=== PATIENT | male | born 1985 | race Caucasian/White ===

== ENCOUNTER 2023-01-30 00:32 | Inpatient (IN) | payer OTHER ==
[2023-01-30 00:59] VITALS: BMI 19.3
[2023-01-30] MEDS ORDERED: LOPERAMIDE HCL 2 MG CAPSULE PO PRN (01:38)
[2023-01-30] MEDS ORDERED: NALOXONE HCL 0.4 MG/ML VIAL IM PRN (01:38)
[2023-01-30] MEDS ORDERED: NALOXONE HCL (KLOXXADO) 8 MG SPRAY NS PRN (01:38)
[2023-01-30] MEDS ORDERED: BENZONATATE 200 MG CAPSULE PO PRN (01:38)
[2023-01-30] MEDS ORDERED: ACETAMINOPHEN 325 MG TABLET (FP) PO PRN (01:38)
[2023-01-30] MEDS ORDERED: BENZOCAINE/MENTHOL (CHLORASEPTIC ) LOZENGE MM PRN (01:38)
[2023-01-30] MEDS ORDERED: POLYETHYLENE GLYCOL (HEALTHYLAX) 3350 17 GM PACKET PO PRN (01:38)
[2023-01-30] MEDS ORDERED: METHOCARBAMOL 500 MG TABLET PO PRN (01:38)
[2023-01-30] MEDS ORDERED: guaiFENesin 600 MG TABLET.ER (FP) PO PRN (01:38)
[2023-01-30] MEDS ORDERED: NICOTINE POLACRILEX 4 MG GUM BUC PRN (01:38)
[2023-01-30] MEDS ORDERED: ONDANSETRON *ODT* 4 MG TABLET SL PRN (01:38)
[2023-01-30] MEDS ORDERED: MAG HYDROX/AL HYDROX/SIMETH 30 ML UNIT-DOSE CUP PO PRN (01:38)
[2023-01-30] MEDS ORDERED: MAGNESIUM HYDROX 2400MG/30ML ORAL SUSPENSION 30 ML CUP PO PRN (01:38)
[2023-01-30] MEDS ORDERED: DICYCLOMINE HCL 10 MG CAPSULE PO PRN (01:38)
[2023-01-30] MEDS ORDERED: BISMUTH SUBSALICYLATE 524 MG/30 ML PO PRN (01:38)
[2023-01-30] MEDS ORDERED: IBUPROFEN 400 MG TABLET (FP) PO PRN (01:38)
[2023-01-30] MEDS: NICOTINE 21 MG/24 HOURS TOPICAL PATCH TD SCH (09:35)
[2023-01-30] MEDS: PRENATAL VITAMINS W/ FOLIC ACID TABLET (FP) PO SCH (09:35)
[2023-01-30] MEDS ORDERED: metFORMIN HCL 500 MG TABLET (FP) PO SCH ×2 (10:00→21:11)
[2023-01-30] MEDS ORDERED: chlordiazePOXIDE HCL 25 MG CAPSULE PO PRN (11:06)
[2023-01-30] MEDS: chlordiazePOXIDE HCL 25 MG CAPSULE PO SCH ×3 (11:26→22:24)
[2023-01-30] MEDS ORDERED: HALOPERIDOL 5 MG TABLET PO PRN (13:08)
[2023-01-30] MEDS ORDERED: MELATONIN 5 MG TABLETS PO SCH (22:00)
[2023-01-30] MEDS: THIAMINE HCL 100 MG TABLET (FP) PO SCH (22:23)
[2023-01-30] MEDS: diphenhydrAMINE HCL 25 MG CAPSULE (FP) PO SCH (22:23)
[2023-01-30] MEDS: HALOPERIDOL 5 MG TABLET PO SCH (22:23)
[2023-01-31] MEDS: chlordiazePOXIDE HCL 25 MG CAPSULE PO SCH ×5 (05:50→22:55)
[2023-01-31] MEDS: metFORMIN HCL 500 MG TABLET (FP) PO SCH ×2 (07:26→17:50)
[2023-01-31] MEDS: NICOTINE 21 MG/24 HOURS TOPICAL PATCH TD SCH (10:23)
[2023-01-31] MEDS: PRENATAL VITAMINS W/ FOLIC ACID TABLET (FP) PO SCH (10:23)
[2023-01-31] MEDS: THIAMINE HCL 100 MG TABLET (FP) PO SCH (22:55)
[2023-01-31] MEDS: diphenhydrAMINE HCL 25 MG CAPSULE (FP) PO SCH (22:55)
[2023-01-31] MEDS: HALOPERIDOL 5 MG TABLET PO SCH (22:55)
[2023-02-01] MEDS: chlordiazePOXIDE HCL 25 MG CAPSULE PO SCH ×4 (05:49→22:16)
[2023-02-01] MEDS: metFORMIN HCL 500 MG TABLET (FP) PO SCH ×2 (06:43→17:28)
[2023-02-01] MEDS: IBUPROFEN 600 MG TABLET (FP) PO PRN (08:59)
[2023-02-01] MEDS: PRENATAL VITAMINS W/ FOLIC ACID TABLET (FP) PO SCH (10:13)
[2023-02-01] MEDS: NICOTINE 21 MG/24 HOURS TOPICAL PATCH TD SCH (10:13)
[2023-02-01] MEDS: HALOPERIDOL 5 MG TABLET PO SCH (22:16)
[2023-02-01] MEDS: THIAMINE HCL 100 MG TABLET (FP) PO SCH (22:16)
[2023-02-01] MEDS: diphenhydrAMINE HCL 25 MG CAPSULE (FP) PO SCH (22:20)
[2023-02-02] MEDS ORDERED: chlordiazePOXIDE HCL 10 MG CAPSULE PO PRN
[2023-02-02] MEDS: chlordiazePOXIDE HCL 10 MG CAPSULE PO SCH ×4 (05:25→22:59)
[2023-02-02] MEDS: metFORMIN HCL 500 MG TABLET (FP) PO SCH ×2 (06:49→16:47)
[2023-02-02] MEDS: NICOTINE 21 MG/24 HOURS TOPICAL PATCH TD SCH (10:33)
[2023-02-02] MEDS: PRENATAL VITAMINS W/ FOLIC ACID TABLET (FP) PO SCH (10:34)
[2023-02-02] MEDS: IBUPROFEN 600 MG TABLET (FP) PO PRN (13:29)
[2023-02-02] MEDS: ALBUTEROL SO4 HFA INHALER IH PRN (14:09)
[2023-02-02] MEDS: diphenhydrAMINE HCL 25 MG CAPSULE (FP) PO SCH (22:58)
[2023-02-02] MEDS: HALOPERIDOL 5 MG TABLET PO SCH (22:58)
[2023-02-02] MEDS: THIAMINE HCL 100 MG TABLET (FP) PO SCH (22:59)
[2023-02-03] MEDS: chlordiazePOXIDE HCL 10 MG CAPSULE PO SCH ×2 (05:20→17:29)
[2023-02-03] MEDS: metFORMIN HCL 500 MG TABLET (FP) PO SCH ×2 (07:16→17:29)
[2023-02-03] MEDS: NICOTINE 21 MG/24 HOURS TOPICAL PATCH TD SCH (10:50)
[2023-02-03] MEDS: PRENATAL VITAMINS W/ FOLIC ACID TABLET (FP) PO SCH (10:50)
[2023-02-03 16:46] VITALS: RESP 16
[2023-02-03] MEDS: ALBUTEROL SO4 HFA INHALER IH PRN (20:06)
[2023-02-03 20:53] VITALS: BP 118/78; PULSE 103; TEMP 97.7
[2023-02-03] MEDS: THIAMINE HCL 100 MG TABLET (FP) PO SCH (22:42)
[2023-02-03] MEDS: HALOPERIDOL 5 MG TABLET PO SCH (22:42)
[2023-02-03] MEDS: diphenhydrAMINE HCL 25 MG CAPSULE (FP) PO SCH (22:42)
[2023-02-04] MEDS ORDERED: chlordiazePOXIDE HCL 10 MG CAPSULE PO ONE (05:00)
[2023-02-04] MEDS: metFORMIN HCL 500 MG TABLET (FP) PO SCH (06:09)
[2023-02-04] MEDS: PRENATAL VITAMINS W/ FOLIC ACID TABLET (FP) PO SCH (09:45)
[2023-02-04] MEDS: NICOTINE 21 MG/24 HOURS TOPICAL PATCH TD SCH (09:45)
== END 2023-02-04 09:52 | disposition home or self-care (01) | DRG 775 ==
LOC: EDBD → YASAS 00:32 → Y3N 02:46 → Y6N 02-01 15:46
PROVIDERS: ADMIT Allergy & Immunology; ATTEND Surgery
PROC: HZ2ZZZZ Detoxification Services for Substance Abuse Treatment (ICD-10-PCS; principal; 2023-01-30)
DX: F10.230 Alcohol dependence with withdrawal, uncomplicated (principal); F16.20 Hallucinogen dependence, uncomplicated; F12.20 Cannabis dependence, uncomplicated; F17.210 Nicotine dependence, cigarettes, uncomplicated; F20.9 Schizophrenia, unspecified; E11.9 Type 2 diabetes mellitus without complications; Z79.84 Long term (current) use of oral hypoglycemic drugs; J45.20 Mild intermittent asthma, uncomplicated; M25.511 Pain in right shoulder; M54.50 Low back pain, unspecified; G89.29 Other chronic pain; Z56.0 Unemployment, unspecified; Z59.00 Homelessness unspecified
CPT/HCPCS: 36415; 80178; 82962; 87635; 93005; 93010

== ENCOUNTER 2023-02-18 15:44 | Inpatient (IN) | payer OTHER ==
[2023-02-18 17:06] VITALS: BMI 20.7
[2023-02-18] MEDS ORDERED: LOPERAMIDE HCL 2 MG CAPSULE PO PRN (20:13)
[2023-02-18] MEDS ORDERED: hydrOXYzine PAMOATE 25 MG CAPSULE (FP) PO PRN (20:13)
[2023-02-18] MEDS ORDERED: POLYETHYLENE GLYCOL (HEALTHYLAX) 3350 17 GM PACKET PO PRN (20:13)
[2023-02-18] MEDS ORDERED: guaiFENesin 600 MG TABLET.ER (FP) PO PRN (20:13)
[2023-02-18] MEDS ORDERED: BENZOCAINE/MENTHOL (CHLORASEPTIC ) LOZENGE MM PRN (20:13)
[2023-02-18] MEDS ORDERED: NALOXONE HCL (KLOXXADO) 8 MG SPRAY NS PRN (20:13)
[2023-02-18] MEDS ORDERED: ONDANSETRON *ODT* 4 MG TABLET SL PRN (20:13)
[2023-02-18] MEDS ORDERED: IBUPROFEN 400 MG TABLET (FP) PO PRN (20:13)
[2023-02-18] MEDS ORDERED: NALOXONE HCL 0.4 MG/ML VIAL IM PRN (20:13)
[2023-02-18] MEDS ORDERED: MAGNESIUM HYDROX 2400MG/30ML ORAL SUSPENSION 30 ML CUP PO PRN (20:13)
[2023-02-18] MEDS ORDERED: ACETAMINOPHEN 325 MG TABLET (FP) PO PRN (20:13)
[2023-02-18] MEDS ORDERED: MAG HYDROX/AL HYDROX/SIMETH 30 ML UNIT-DOSE CUP PO PRN (20:13)
[2023-02-18] MEDS ORDERED: BISMUTH SUBSALICYLATE 524 MG/30 ML PO PRN (20:13)
[2023-02-18] MEDS ORDERED: NICOTINE POLACRILEX 2 MG GUM BUC PRN (20:13)
[2023-02-18] MEDS ORDERED: BENZONATATE 200 MG CAPSULE PO PRN (20:13)
[2023-02-18] MEDS ORDERED: DICYCLOMINE HCL 10 MG CAPSULE PO PRN (20:13)
[2023-02-18] MEDS ORDERED: ALBUTEROL SO4 HFA INHALER IH PRN (20:20)
[2023-02-18] MEDS ORDERED: METHOCARBAMOL 500 MG TABLET ONE (21:05)
[2023-02-18] MEDS ORDERED: IBUPROFEN 600 MG TABLET (FP) PO ONE (21:05)
[2023-02-18] MEDS ORDERED: MELATONIN 5 MG TABLETS ONE (21:05)
[2023-02-18] MEDS: THIAMINE HCL 100 MG TABLET (FP) PO SCH (21:12)
[2023-02-18] MEDS: METHOCARBAMOL 500 MG TABLET PO PRN (21:12)
[2023-02-18] MEDS: IBUPROFEN 600 MG TABLET (FP) PO PRN (21:12)
[2023-02-18] MEDS ORDERED: MELATONIN 5 MG TABLETS PO SCH (22:00)
[2023-02-19] MEDS: IBUPROFEN 600 MG TABLET (FP) PO PRN (06:09)
[2023-02-19] MEDS: METHOCARBAMOL 500 MG TABLET PO PRN (06:09)
[2023-02-19] MEDS: NICOTINE 21 MG/24 HOURS TOPICAL PATCH TD SCH (10:41)
[2023-02-19] MEDS: PRENATAL VITAMINS W/ FOLIC ACID TABLET (FP) PO SCH (10:41)
[2023-02-19 20:54] VITALS: TEMP 98
[2023-02-19] MEDS ORDERED: HALOPERIDOL 5 MG TABLET PO SCH (22:00)
[2023-02-19] MEDS ORDERED: diphenhydrAMINE HCL 25 MG CAPSULE (FP) PO PRN (22:00)
[2023-02-19] MEDS ORDERED: ALBUTEROL SO4 HFA INHALER IH PRN (22:21)
[2023-02-19] MEDS: THIAMINE HCL 100 MG TABLET (FP) PO SCH (22:29)
[2023-02-20] MEDS: metFORMIN HCL 500 MG TABLET (FP) PO SCH ×2 (07:34→08:08)
[2023-02-20] MEDS: PRENATAL VITAMINS W/ FOLIC ACID TABLET (FP) PO SCH (10:25)
[2023-02-20] MEDS: NICOTINE 21 MG/24 HOURS TOPICAL PATCH TD SCH (10:25)
[2023-02-20] MEDS: METHOCARBAMOL 500 MG TABLET PO PRN (12:16)
[2023-02-20] MEDS: IBUPROFEN 600 MG TABLET (FP) PO PRN (12:16)
[2023-02-20 12:42] VITALS: BP 109/73; PULSE 103; RESP 18
== END 2023-02-20 15:28 | disposition other institution (70) | DRG 774 ==
LOC: EDBD → YASAS 15:44 → Y3N 21:21
PROVIDERS: ADMIT Allergy & Immunology; ATTEND Surgery
PROC: HZ2ZZZZ Detoxification Services for Substance Abuse Treatment (ICD-10-PCS; principal; 2023-02-18)
DX: F10.230 Alcohol dependence with withdrawal, uncomplicated (principal); F14.20 Cocaine dependence, uncomplicated; F16.20 Hallucinogen dependence, uncomplicated; F17.210 Nicotine dependence, cigarettes, uncomplicated; F31.9 Bipolar disorder, unspecified; F19.24 Other psychoactive substance dependence with psychoactive substance-induced mood disorder; I10 Essential (primary) hypertension; J45.20 Mild intermittent asthma, uncomplicated; E11.9 Type 2 diabetes mellitus without complications; Z79.84 Long term (current) use of oral hypoglycemic drugs; M54.50 Low back pain, unspecified; G89.29 Other chronic pain
CPT/HCPCS: 82962; 87635; 87811; 93005; 93010

== ENCOUNTER 2023-02-20 14:52 | Inpatient (IN) | payer OTHER ==
[2023-02-20] MEDS ORDERED: MAG HYDROX/AL HYDROX/SIMETH 30 ML UNIT-DOSE CUP PO PRN (15:50)
[2023-02-20] MEDS ORDERED: IBUPROFEN 400 MG TABLET (FP) PO PRN (15:50)
[2023-02-20] MEDS ORDERED: BENZONATATE 200 MG CAPSULE PO PRN (15:50)
[2023-02-20] MEDS ORDERED: COLLOIDAL OATMEAL 1 BAR EACH TP PRN (15:50)
[2023-02-20] MEDS ORDERED: IBUPROFEN 600 MG TABLET (FP) PO PRN (15:50)
[2023-02-20] MEDS ORDERED: guaiFENesin 600 MG TABLET.ER (FP) PO PRN (15:50)
[2023-02-20] MEDS ORDERED: ACETAMINOPHEN 325 MG TABLET (FP) PO PRN (15:50)
[2023-02-20] MEDS ORDERED: MAGNESIUM HYDROX 2400MG/30ML ORAL SUSPENSION 30 ML CUP PO PRN (15:50)
[2023-02-20] MEDS ORDERED: NICOTINE POLACRILEX 4 MG GUM BUC PRN (15:50)
[2023-02-20] MEDS ORDERED: hydrOXYzine PAMOATE 25 MG CAPSULE (FP) PO PRN (15:50)
[2023-02-20] MEDS ORDERED: NALOXONE HCL (KLOXXADO) 8 MG SPRAY NS PRN (15:50)
[2023-02-20] MEDS ORDERED: NICOTINE 14 MG/24 HOURS TOPICAL PATCH TD PRN (15:50)
[2023-02-20] MEDS ORDERED: NALOXONE HCL 0.4 MG/ML VIAL IVPUSH PRN (15:50)
[2023-02-20] MEDS ORDERED: LOPERAMIDE HCL 2 MG CAPSULE PO PRN (15:50)
[2023-02-20] MEDS ORDERED: POLYETHYLENE GLYCOL (HEALTHYLAX) 3350 17 GM PACKET PO PRN (15:50)
[2023-02-20] MEDS ORDERED: AMMONIUM LACTATE 12% LOTION 225 GM BOTTLE TP PRN (15:50)
[2023-02-20] MEDS ORDERED: BENZOCAINE/MENTHOL (CHLORASEPTIC ) LOZENGE MM PRN (15:50)
[2023-02-20] MEDS ORDERED: ALBUTEROL SO4 HFA INHALER IH PRN (15:53)
[2023-02-20] MEDS: HALOPERIDOL 5 MG TABLET PO SCH (21:08)
[2023-02-20] MEDS: MELATONIN 5 MG TABLETS PO SCH (21:08)
[2023-02-20] MEDS: THIAMINE HCL 100 MG TABLET (FP) PO SCH (21:08)
[2023-02-21] MEDS: METHOCARBAMOL 500 MG TABLET PO PRN ×2 (01:12→21:16)
[2023-02-21] MEDS: PRENATAL VITAMINS W/ FOLIC ACID TABLET (FP) PO SCH (09:31)
[2023-02-21 11:21] LABS: HIV INTERPRETATION NEGATIVE (NEGATIVE)
[2023-02-21] MEDS: THIAMINE HCL 100 MG TABLET (FP) PO SCH (21:16)
[2023-02-21] MEDS: MELATONIN 5 MG TABLETS PO SCH (21:16)
[2023-02-21] MEDS: HALOPERIDOL 5 MG TABLET PO SCH (21:16)
[2023-02-22] MEDS: PRENATAL VITAMINS W/ FOLIC ACID TABLET (FP) PO SCH (09:39)
[2023-02-22] MEDS: METHOCARBAMOL 500 MG TABLET PO PRN (20:32)
[2023-02-22] MEDS: THIAMINE HCL 100 MG TABLET (FP) PO SCH (21:18)
[2023-02-22] MEDS: HALOPERIDOL 5 MG TABLET PO SCH (21:18)
[2023-02-22] MEDS: MELATONIN 5 MG TABLETS PO SCH (21:18)
[2023-02-23 08:03] VITALS: BP 112/80; PULSE 88; RESP 17; TEMP 97.1
[2023-02-23] MEDS: PRENATAL VITAMINS W/ FOLIC ACID TABLET (FP) PO SCH (09:29)
== END 2023-02-23 10:01 | disposition left against medical advice (07) | DRG 770 ==
LOC: YASAS 14:52 → Y3E 14:53
PROVIDERS: ADMIT Allergy & Immunology; ATTEND Psychiatry & Neurology Pain Medicine
PROC: HZ42ZZZ Group Counseling for Substance Abuse Treatment, Cognitive-Behavioral (ICD-10-PCS; principal; 2023-02-20)
DX: F10.20 Alcohol dependence, uncomplicated (principal); F14.20 Cocaine dependence, uncomplicated; F16.20 Hallucinogen dependence, uncomplicated; F17.210 Nicotine dependence, cigarettes, uncomplicated; F31.9 Bipolar disorder, unspecified; F19.24 Other psychoactive substance dependence with psychoactive substance-induced mood disorder; F20.9 Schizophrenia, unspecified; F90.9 Attention-deficit hyperactivity disorder, unspecified type; I10 Essential (primary) hypertension; E11.9 Type 2 diabetes mellitus without complications; Z79.84 Long term (current) use of oral hypoglycemic drugs; J45.20 Mild intermittent asthma, uncomplicated; M54.50 Low back pain, unspecified; G89.29 Other chronic pain
CPT/HCPCS: 36415; 86803; 87389

== ENCOUNTER 2023-05-05 11:12 | Inpatient (IN) | payer OTHER ==
[2023-05-05 11:36] VITALS: BMI 18.8
[2023-05-05] MEDS ORDERED: NALOXONE HCL 0.4 MG/ML VIAL IM PRN (13:20)
[2023-05-05] MEDS ORDERED: NALOXONE HCL (KLOXXADO) 8 MG SPRAY NS PRN (13:20)
[2023-05-05] MEDS ORDERED: DICYCLOMINE HCL 10 MG CAPSULE PO PRN (13:20)
[2023-05-05] MEDS ORDERED: METHOCARBAMOL 500 MG TABLET PO PRN (13:20)
[2023-05-05] MEDS ORDERED: BENZONATATE 200 MG CAPSULE PO PRN (13:20)
[2023-05-05] MEDS ORDERED: ONDANSETRON *ODT* 4 MG TABLET SL PRN (13:20)
[2023-05-05] MEDS ORDERED: IBUPROFEN 400 MG TABLET (FP) PO PRN (13:20)
[2023-05-05] MEDS ORDERED: IBUPROFEN 600 MG TABLET (FP) PO PRN (13:20)
[2023-05-05] MEDS ORDERED: MAG HYDROX/AL HYDROX/SIMETH 30 ML UNIT-DOSE CUP PO PRN (13:20)
[2023-05-05] MEDS ORDERED: LOPERAMIDE HCL 2 MG CAPSULE PO PRN (13:20)
[2023-05-05] MEDS ORDERED: guaiFENesin 600 MG TABLET.ER (FP) PO PRN (13:20)
[2023-05-05] MEDS ORDERED: hydrOXYzine PAMOATE 25 MG CAPSULE (FP) PO PRN (13:20)
[2023-05-05] MEDS ORDERED: MAGNESIUM HYDROX 2400MG/30ML ORAL SUSPENSION 30 ML CUP PO PRN (13:20)
[2023-05-05] MEDS ORDERED: POLYETHYLENE GLYCOL (HEALTHYLAX) 3350 17 GM PACKET PO PRN (13:20)
[2023-05-05] MEDS ORDERED: BENZOCAINE/MENTHOL (CHLORASEPTIC ) LOZENGE MM PRN (13:20)
[2023-05-05] MEDS ORDERED: ACETAMINOPHEN 325 MG TABLET (FP) PO PRN (13:20)
[2023-05-05] MEDS ORDERED: BISMUTH SUBSALICYLATE 524 MG/30 ML PO PRN (13:20)
[2023-05-05] MEDS: metFORMIN HCL 500 MG TABLET (FP) PO SCH (17:10)
[2023-05-05] MEDS: THIAMINE HCL 100 MG TABLET (FP) PO SCH (22:48)
[2023-05-05] MEDS: MELATONIN 5 MG TABLETS PO SCH (22:48)
[2023-05-06] MEDS ORDERED: chlordiazePOXIDE HCL 25 MG CAPSULE PO PRN (09:47)
[2023-05-06] MEDS: PRENATAL VITAMINS W/ FOLIC ACID TABLET (FP) PO SCH (10:27)
[2023-05-06] MEDS: chlordiazePOXIDE HCL 25 MG CAPSULE PO SCH (10:27)
[2023-05-06 12:12] LABS: HEMATOCRIT 41.5 % (35.4-49); HEMOGLOBIN 14.2 GM/dL (11.7-16.9); MCH 30.9 pg (25.7-33.7); MCHC 34.3 g/dl (32.0-35.9); MEAN CELL VOLUME 90.3 fl (80-96); MEAN PLT VOLUME 8.8 fl (7.5-11.1); PLATELET COUNT 258 10^3/uL (134-434); RDW 14.5 % (11.9-15.9); WHITE BLOOD COUNT 5.3 K/mm3 (4.0-10.0)
[2023-05-06 13:20] LABS: CHLORIDE 110 mmol/L (98-107); POTASSIUM 4.2 mmol/L (3.5-5.1); SODIUM 141 mmol/L (136-145)
[2023-05-06 13:36] LABS: ANION GAP 4 mmol/L (4-13); BLOOD UREA NITROGEN 10.1 mg/dL (7-18); CALCIUM 8.6 mg/dL (8.5-10.1); CO2 27 mmol/L (21-32); GLUCOSE,RANDOM 116 mg/dL (74-106)
[2023-05-06 13:39] LABS: CREATININE 0.7 mg/dL (0.55-1.3); SGOT/AST 15 U/L (15-37)
[2023-05-06 13:41] LABS: BILIRUBIN,TOTAL 0.3 mg/dL (0.2-1); TOT PROT 6.2 g/dl (6.4-8.2)
[2023-05-06 13:42] LABS: ALK PHOS 96 U/L (45-117)
[2023-05-06] MEDS ORDERED: ALBUTEROL SO4 HFA INHALER IH PRN (13:46)
[2023-05-06 13:57] LABS: SGPT/ALT 19 U/L (13-61)
[2023-05-06] MEDS: LACTULOSE 20 GM/30 ML UDC (FOR ORAL USE ONLY) PO SCH (17:38)
[2023-05-07 09:01] VITALS: BP 109/76; PULSE 90; RESP 20; TEMP 97.4
[2023-05-08] MEDS ORDERED: chlordiazePOXIDE HCL 25 MG CAPSULE PO SCH (05:00)
[2023-05-09] MEDS ORDERED: chlordiazePOXIDE HCL 10 MG CAPSULE PO PRN
[2023-05-09] MEDS ORDERED: chlordiazePOXIDE HCL 10 MG CAPSULE PO SCH (05:00)
[2023-05-10] MEDS ORDERED: chlordiazePOXIDE HCL 10 MG CAPSULE PO SCH (05:00)
[2023-05-11] MEDS ORDERED: chlordiazePOXIDE HCL 10 MG CAPSULE PO ONE (05:00)
== END 2023-05-07 09:12 | disposition left against medical advice (07) | DRG 770 ==
LOC: YASAS 11:12 → Y6N 13:43
PROVIDERS: ADMIT Allergy & Immunology; ATTEND Surgery
PROC: HZ2ZZZZ Detoxification Services for Substance Abuse Treatment (ICD-10-PCS; principal; 2023-05-05)
DX: F10.230 Alcohol dependence with withdrawal, uncomplicated (principal); F14.20 Cocaine dependence, uncomplicated; F16.10 Hallucinogen abuse, uncomplicated; F12.20 Cannabis dependence, uncomplicated; F17.210 Nicotine dependence, cigarettes, uncomplicated; F25.0 Schizoaffective disorder, bipolar type; I10 Essential (primary) hypertension; J45.20 Mild intermittent asthma, uncomplicated; E11.9 Type 2 diabetes mellitus without complications; Z79.84 Long term (current) use of oral hypoglycemic drugs
CPT/HCPCS: 36415; 80053; 80305; 80307; 82140; 82962; 85027; 86780; 87635; 87811; 93005; 93010